=== PATIENT | female | born 1975 | race Caucasian/White ===

== ENCOUNTER → 2016-09-05 | Outpatient (CLI) | payer BC ==
[2016-09-05 08:24] LABS: ALT 34 U/L (9-52); AST 29 U/L (14-36); Alkaline Phosphatase 77 U/L (38-126); Anion Gap 11 mmol/L; Blood Urea Nitrogen 11 mg/dL (7-17); Calcium 8.8 mg/dL (8.4-10.2); Carbon Dioxide 26 mmol/L (22-30); Chloride 106 mmol/L (98-107); Cholesterol 155 mg/dL (<200); Glucose 148 mg/dL (74-99); HDL Cholesterol 50 mg/dL (40-60); Non-African American GFR(MDRD) >60 (>60 ml/min/1.73 sqM); Potassium 4.5 mmol/L (3.5-5.1); Sodium 143 mmol/L (137-145); Total Bilirubin 0.6 mg/dL (0.2-1.3); Total Protein 6.7 g/dL (6.3-8.2); Triglycerides 106 mg/dL (<150)
== END | disposition home or self-care (01) ==
LOC: LABWHC1 07:22
PROVIDERS: ATTEND Internal Medicine Endocrinology, Diabetes & Metabolism
DX: E11.65 Type 2 diabetes mellitus with hyperglycemia (principal)
CPT/HCPCS: 36415; 80053; 80061

== ENCOUNTER → 2016-12-24 | Outpatient (CLI) | payer BC ==
[2016-12-24 08:54] LABS: Basophils % (A) 1 %; CH 31.9; CHCM 33.5; Eosinophils # (A) 0.2 k/uL (0-0.7); Eosinophils % (A) 4 %; HCT 42.1 % (34.0-46.0); HDW 2.83; HGB 13.7 gm/dL (11.4-16.0); Luc # (Auto) 0.11; Luc % (Auto) 2; Lymphocytes # (A) 1.5 k/uL (1.0-4.8); Lymphocytes % (A) 32 %; MCH 31.1 pg (25.0-35.0); MCHC 32.5 g/dL (31.0-37.0); MCV 95.9 fL (80.0-100.0); Mean Platelet Volume 6.9; Monocytes # (A) 0.3 k/uL (0-1.0); Monocytes % (A) 6 %; Neutrophils # (A) 2.6 k/uL (1.3-7.7); Neutrophils % (A) 56 %; RBC 4.39 m/uL (3.80-5.40); RDW 13.1 % (11.5-15.5); WBC 4.6 k/uL (3.8-10.6); WBC (Perox) 4.79
[2016-12-24 09:02] LABS: ALT 35 U/L (9-52); AST 26 U/L (14-36); Alkaline Phosphatase 73 U/L (38-126); Anion Gap 8 mmol/L; Blood Urea Nitrogen 12 mg/dL (7-17); Carbon Dioxide 27 mmol/L (22-30); Chloride 105 mmol/L (98-107); Cholesterol 163 mg/dL (<200); Glucose 162 mg/dL (74-99); HDL Cholesterol 50 mg/dL (40-60); Non-African American GFR(MDRD) >60 (>60 ml/min/1.73 sqM); Potassium 5.1 mmol/L (3.5-5.1); Sodium 140 mmol/L (137-145); Total Bilirubin 0.6 mg/dL (0.2-1.3); Total Protein 7.2 g/dL (6.3-8.2); Triglycerides 117 mg/dL (<150)
== END | disposition home or self-care (01) ==
LOC: LABWHC1 07:41
PROVIDERS: ATTEND Internal Medicine
DX: E78.5 Hyperlipidemia, unspecified (principal); E11.9 Type 2 diabetes mellitus without complications; K21.9 Gastro-esophageal reflux disease without esophagitis; J45.20 Mild intermittent asthma, uncomplicated
CPT/HCPCS: 36415; 80053; 80061; 83036; 84439; 84443; 85025

== ENCOUNTER → 2017-01-22 | Outpatient (CLI) | payer BC ==
--- NOTE | 2017-01-22 08:01 | US ---
EXAMINATION TYPE: US abdomen complete DATE OF EXAM: 01/22/2017 COMPARISON: Previous study dated 02/09/2014. CLINICAL HISTORY 10.9 ABDOMINAL PAIN. C/O severe RUQ "stabbing" pain occurring intermittently; gallbl adder removed 2012; on meds for HTN,etc; large body habitus EXAM MEASUREMENTS: Liver Length: 14.4 cm Gallbladder Wall: surgically removed CBD: 0.5 cm Spleen: 10.9 cm Right Kidney: 9.2 x 6.3 x 4.4 cm Left Kidney: 9.9 x 5.7 x 5.2 cm Exam is technically limited by body habitus. Pancreas: Tail obscured by overlying bowel gas Liver: attenuated posteriorly; vessels limitedly seen Gallbladder: surgically absent Evidence for sonographic Ford's sign: not at time of US CBD: wnl Spleen: wnl Right Kidney: wnl Left Kidney: wnl Upper IVC: wnl Abd Aorta: wnl Bowel is noted at patient's area of pain at RUQ. The pancreas is poorly visualized. The liver is normal in size without evidence of biliary dilatation. It is slightly echogenic and perh aps fatty infiltrated. The gallbladder is been removed. Distal common hepatic duct measures 5 mm. Both kidneys are normal. Visualized portions of aorta and IVC are normal. IMPRESSION: 1. STATUS POST CHOLECYSTECTOMY. 2. I CANNOT EXCLUDE FATTY INFILTRATION OF THE LIVER.
== END | disposition home or self-care (01) ==
LOC: RADUSWWP 06:55
PROVIDERS: ATTEND Surgery
DX: R10.9 Unspecified abdominal pain (principal); Z90.49 Acquired absence of other specified parts of digestive tract
CPT/HCPCS: 76700

== ENCOUNTER → 2018-04-08 | Outpatient (CLI) | payer BC ==
[2018-04-08 07:15] LABS: ALT 47 U/L (9-52); AST 50 U/L (14-36); Albumin 3.6 g/dL (3.5-5.0); Alkaline Phosphatase 82 U/L (38-126); Anion Gap 7 mmol/L; Blood Urea Nitrogen 13 mg/dL (7-17); Calcium 8.4 mg/dL (8.4-10.2); Carbon Dioxide 27 mmol/L (22-30); Chloride 106 mmol/L (98-107); Cholesterol 140 mg/dL (<200); Glucose 107 mg/dL (74-99); HDL Cholesterol 48 mg/dL (40-60); LDL Cholesterol,Calculated 77 mg/dL (0-99); Potassium 4.2 mmol/L (3.5-5.1); Sodium 140 mmol/L (137-145); Total Bilirubin 0.6 mg/dL (0.2-1.3); Total Protein 6.5 g/dL (6.3-8.2); Triglycerides 76 mg/dL (<150)
[2018-04-08 13:18] LABS: Hemoglobin A1C 6.5 % (4.0-6.0)
== END | disposition home or self-care (01) ==
LOC: LABWHC1 06:35
PROVIDERS: ATTEND Internal Medicine
DX: E78.5 Hyperlipidemia, unspecified (principal); I10 Essential (primary) hypertension; E11.9 Type 2 diabetes mellitus without complications; E03.9 Hypothyroidism, unspecified
CPT/HCPCS: 36415; 80053; 80061; 82043; 82570; 83036; 84439; 84443

== ENCOUNTER 2018-10-04 12:32 | Emergency (ER) | payer BC ==
[2018-10-04 13:08] VITALS: RESP 18
[2018-10-04] MEDS ORDERED: SODIUM CHLORIDE 0.9% 1,000 ML IV STA (13:46)
--- NOTE | 2018-10-04 13:59 | ED ---
General Adult HPI - General Chief complaint: Recheck/Abnormal Lab/Rx Stated complaint: High BP Time Seen by Provider: 10/04/18 13:05 Source: patient, RN notes reviewed Mode of arrival: ambulatory Limitations: no limitations - History of Present Illness Initial comments: This is a 43-year-old female presents emergency department stating that her heart rate has been getting up to 130 beats a minute while she's at work. Patient states she's not upset and denies any drug use. Patient states she does not have any chest pain she does not feel any palpitations but she notices that her heart rate is at fast because of the watch is wearing. Patient denies any thyroid issues. Patient denies any headache patient denies numbness weakness. Patient denies any recent fever chills or cough. Patient denies any abdominal pain patient denies nausea vomiting diarrhea. Patient denies any leg swelling or calf tenderness. Patient denies any long trips or travel. Patient states this is been ongoing for a few days but she also has noted her blood pressures been up for the last week and a half or so. She does states she has some slight shortness of breath. - Related Data Home Medications Medication Instructions Recorded Confirmed Etodolac [Lodine] 400 mg PO BID 01/29/15 10/04/18 Gabapentin [Neurontin] 300 mg PO BID 01/29/15 10/04/18 Losartan [Cozaar] 25 mg PO DAILY 01/29/15 10/04/18 Pantoprazole Sodium 40 mg PO DAILY 01/29/15 10/04/18 Cyclobenzaprine [Flexeril] 10 mg PO HS PRN 10/04/18 10/04/18 Pioglitazone [Actos] 15 mg PO DAILY 10/04/18 10/04/18 glipiZIDE [Glucotrol] 10 mg PO AC-BID 10/04/18 10/04/18 Allergies Allergy/AdvReac Type Severity Reaction Status Date / Time metformin Allergy Unknown Verified 10/04/18 13:52 moxifloxacin HCl Allergy Rash/Hives Verified 10/04/18 13:52 [From Avelox] Review of Systems ROS Statement: Those systems with pertinent positive or pertinent negative responses have been documented in the HPI. ROS Other: All systems not noted in ROS Statement are negative. Past Medical History Past Medical History: Diabetes Mellitus, Hypertension History of Any Multi-Drug Resistant Organisms: None Reported Past Surgical History: Cholecystectomy Additional Past Surgical History / Comment(s): bladder suspension, carpal tunnel Past Psychological History: No Psychological Hx Reported Smoking Status: Never smoker Past Alcohol Use History: None Reported Past Drug Use History: None Reported General Exam - General Exam Comments Initial Comments: GENERAL: Patient is well-developed and well-nourished. Patient is nontoxic and well- hydrated and is in no acute distress. ENT: Neck is soft and supple. No significant lymphadenopathy is noted. Oropharynx is clear. Moist mucous membranes. Neck has full range of motion without eliciting any pain. EYES: The sclera were anicteric and conjunctiva were pink and moist. Extraocular movements were intact and pupils were equal round and reactive to light. Eyelids were unremarkable. PULMONARY: Unlabored respirations. Good breath sounds bilaterally. No audible rales rhonchi or wheezing was noted. CARDIOVASCULAR: There is a regular rate and rhythm without any murmurs gallops or rubs. ABDOMEN: Soft and nontender with normal bowel sounds. No palpable organomegaly was noted. There is no palpable pulsatile mass. SKIN: Skin is clear with no lesions or rashes and otherwise unremarkable. NEUROLOGIC: Patient is alert and oriented x3. Cranial nerves II through XII are grossly intact. Motor and sensory are also intact. Normal speech, volume and content. Symmetrical smile. MUSCULOSKELETAL: Normal extremities with adequate strength and full range of motion. No lower extremity swelling or edema. No calf tenderness. LYMPHATICS: No significant lymphadenopathy is noted PSYCHIATRIC: Normal psychiatric evaluation. Normal interpersonal interactions appears functionally intact in deals appropriately with others. No signs of depression. No signs of anxiety. Limitations: no limitations Course Vital Signs 10/04/18 10/04/18 10/04/18 13:05 13:53 15:00 Temperature 98.3 F Pulse Rate 107 H 111 H 102 H Respiratory 18 18 18 Rate Blood Pressure 148/84 139/82 O2 Sat by Pulse 100 100 99 Oximetry 10/04/18 15:45 Temperature Pulse Rate 104 H Respiratory 18 Rate Blood Pressure 143/74 O2 Sat by Pulse 99 Oximetry Medical Decision Making - Medical Decision Making EKG shows sinus tachycardia at 102 bpm MO interval is on a 44 QRS 78 QT interval 346 QTC is 450 per patient's EKG shows no ST segment elevation or depression or T wave abnormalities are noted. - Lab Data Result diagrams: 10/04/18 14:00 10/04/18 14:00 Lab Results 10/04/18 10/04/18 10/04/18 Range/Units 14:00 14:00 14:00 WBC 5.7 (3.8-10.6) k/uL RBC 4.22 (3.80-5.40) m/uL Hgb 13.1 (11.4-16.0) gm/dL Hct 38.9 (34.0-46.0) % MCV 92.0 (80.0-100.0) fL MCH 30.9 (25.0-35.0) pg MCHC 33.6 (31.0-37.0) g/dL RDW 13.2 (11.5-15.5) % Plt Count 200 (150-450) k/uL Neutrophils % 65 % Lymphocytes % 25 % Monocytes % 4 % Eosinophils % 4 % Basophils % 1 % Neutrophils # 3.7 (1.3-7.7) k/uL Lymphocytes # 1.5 (1.0-4.8) k/uL Monocytes # 0.2 (0-1.0) k/uL Eosinophils # 0.2 (0-0.7) k/uL Basophils # 0.0 (0-0.2) k/uL PT 11.2 (9.0-12.0) sec INR 1.1 (<1.2) APTT 25.1 (22.0-30.0) sec D-Dimer 0.45 (<0.60) mg/L FEU Sodium (137-145) mmol/L Potassium (3.5-5.1) mmol/L Chloride (98-107) mmol/L Carbon Dioxide (22-30) mmol/L Anion Gap mmol/L BUN (7-17) mg/dL Creatinine (0.52-1.04) mg/dL Est GFR (CKD-EPI)AfAm (>60 ml/min/1.73 sqM) Est GFR (CKD-EPI)NonAf (>60 ml/min/1.73 sqM) Glucose (74-99) mg/dL Calcium (8.4-10.2) mg/dL Magnesium (1.6-2.3) mg/dL Total Bilirubin (0.2-1.3) mg/dL AST (14-36) U/L ALT (9-52) U/L Alkaline Phosphatase (38-126) U/L Total Creatine Kinase 136 H (30-135) U/L CK-MB (CK-2) 1.8 (0.0-2.4) ng/mL CK-MB (CK-2) Rel Index 1.3 Troponin I <0.012 (0.000-0.034) ng/mL Total Protein (6.3-8.2) g/dL Albumin (3.5-5.0) g/dL TSH (0.465-4.680) mIU/L Free T4 (0.78-2.19) ng/dL Urine Opiates Screen (NotDetected) Ur Oxycodone Screen (NotDetected) Urine Methadone Screen (NotDetected) Ur Propoxyphene Screen (NotDetected) Ur Barbiturates Screen (NotDetected) U Tricyclic Antidepress (NotDetected) Ur Phencyclidine Scrn (NotDetected) Ur Amphetamines Screen (NotDetected) U Methamphetamines Scrn (NotDetected) U Benzodiazepines Scrn (NotDetected) Urine Cocaine Screen (NotDetected) U Marijuana (THC) Screen (NotDetected) 10/04/18 10/04/18 Range/Units 14:00 14:00 WBC (3.8-10.6) k/uL RBC (3.80-5.40) m/uL Hgb (11.4-16.0) gm/dL Hct (34.0-46.0) % MCV (80.0-100.0) fL MCH (25.0-35.0) pg MCHC (31.0-37.0) g/dL RDW (11.5-15.5) % Plt Count (150-450) k/uL Neutrophils % % Lymphocytes % % Monocytes % % Eosinophils % % Basophils % % Neutrophils # (1.3-7.7) k/uL Lymphocytes # (1.0-4.8) k/uL Monocytes # (0-1.0) k/uL Eosinophils # (0-0.7) k/uL Basophils # (0-0.2) k/uL PT (9.0-12.0) sec INR (<1.2) APTT (22.0-30.0) sec D-Dimer (<0.60) mg/L FEU Sodium 141 (137-145) mmol/L Potassium 4.0 (3.5-5.1) mmol/L Chloride 109 H (98-107) mmol/L Carbon Dioxide 23 (22-30) mmol/L Anion Gap 9 mmol/L BUN 15 (7-17) mg/dL Creatinine 0.63 (0.52-1.04) mg/dL Est GFR (CKD-EPI)AfAm >90 (>60 ml/min/1.73 sqM) Est GFR (CKD-EPI)NonAf >90 (>60 ml/min/1.73 sqM) Glucose 141 H (74-99) mg/dL Calcium 8.9 (8.4-10.2) mg/dL Magnesium 1.8 (1.6-2.3) mg/dL Total Bilirubin 0.4 (0.2-1.3) mg/dL AST 25 (14-36) U/L ALT 28 (9-52) U/L Alkaline Phosphatase 82 (38-126) U/L Total Creatine Kinase (30-135) U/L CK-MB (CK-2) (0.0-2.4) ng/mL CK-MB (CK-2) Rel Index Troponin I (0.000-0.034) ng/mL Total Protein 6.9 (6.3-8.2) g/dL Albumin 3.8 (3.5-5.0) g/dL TSH 0.399 L (0.465-4.680) mIU/L Free T4 0.91 (0.78-2.19) ng/dL Urine Opiates Screen Not Detected (NotDetected) Ur Oxycodone Screen Not Detected (NotDetected) Urine Methadone Screen Not Detected (NotDetected) Ur Propoxyphene Screen Not Detected (NotDetected) Ur Barbiturates Screen Not Detected (NotDetected) U Tricyclic Antidepress Not Detected (NotDetected) Ur Phencyclidine Scrn Not Detected (NotDetected) Ur Amphetamines Screen Not Detected (NotDetected) U Methamphetamines Scrn Not Detected (NotDetected) U Benzodiazepines Scrn Not Detected (NotDetected) Urine Cocaine Screen Not Detected (NotDetected) U Marijuana (THC) Screen Not Detected (NotDetected) Disposition Clinical Impression: Sinus tachycardia Disposition: HOME SELF-CARE Condition: Good Instructions (If sedation given, give patient instructions): Atrial Tachycardia (ED) Is patient prescribed a controlled substance at d/c from ED?: No Referrals: Gonzalez Kessler MD [Primary Care Provider] - 1-2 days Time of Disposition: 16:11
[2018-10-04 14:22] LABS: Basophils % (A) 1 %; Eosinophils # (A) 0.2 k/uL (0-0.7); Eosinophils % (A) 4 %; HCT 38.9 % (34.0-46.0); HGB 13.1 gm/dL (11.4-16.0); Lymphocytes # (A) 1.5 k/uL (1.0-4.8); Lymphocytes % (A) 25 %; MCH 30.9 pg (25.0-35.0); MCHC 33.6 g/dL (31.0-37.0); Mean Platelet Volume 6.8; Monocytes # (A) 0.2 k/uL (0-1.0); Monocytes % (A) 4 %; Neutrophils # (A) 3.7 k/uL (1.3-7.7); Neutrophils % (A) 65 %; Platelet Count 200 k/uL (150-450); RBC 4.22 m/uL (3.80-5.40); RDW 13.2 % (11.5-15.5); WBC 5.7 k/uL (3.8-10.6)
--- NOTE | 2018-10-04 14:35 | XR ---
EXAMINATION TYPE: XR chest 2V DATE OF EXAM: 10/04/2018 COMPARISON: NONE HISTORY: Arrhythmia. History of hypertension. TECHNIQUE: Frontal and lateral views of the chest are obtained. FINDINGS: There is no focal air space opacity, pleural effusion, or pneumothorax seen. The cardiac silhouette size is upper limits of normal. The osseous structures are intact. Cholecystectomy clips are noted. IMPRESSION: No acute cardiopulmonary process.
[2018-10-04 14:37] LABS: Amphetamine Screen,Urine Not Detected (NotDetected); Barbiturate Screen,Urine Not Detected (NotDetected); Benzodiazepines Screen,Urine Not Detected (NotDetected); Cocaine Screen,Urine Not Detected (NotDetected); Methadone Screen, Urine Not Detected (NotDetected); Opiate Screen,Urine Not Detected (NotDetected); Oxycodone Screen, Urine Not Detected (NotDetected); Phencyclidine Screen,Urine Not Detected (NotDetected); Tricyclic Antidepressant,Urine Not Detected (NotDetected); Urn Cannabinoid Scrn Not Detected (NotDetected)
[2018-10-04 14:39] LABS: D-Dimer 0.45 mg/L FEU (<0.60); INR 1.1 (<1.2); Partial Thromboplastin Time 25.1 sec (22.0-30.0); Prothrombin Time 11.2 sec (9.0-12.0)
[2018-10-04 14:56] LABS: ALT 28 U/L (9-52); AST 25 U/L (14-36); Albumin 3.8 g/dL (3.5-5.0); Alkaline Phosphatase 82 U/L (38-126); Anion Gap 9 mmol/L; Blood Urea Nitrogen 15 mg/dL (7-17); Calcium 8.9 mg/dL (8.4-10.2); Carbon Dioxide 23 mmol/L (22-30); Chloride 109 mmol/L (98-107); Creatine Kinase 136 U/L (30-135); Glucose 141 mg/dL (74-99); Magnesium 1.8 mg/dL (1.6-2.3); Sodium 141 mmol/L (137-145); Total Bilirubin 0.4 mg/dL (0.2-1.3); Total Protein 6.9 g/dL (6.3-8.2)
[2018-10-04 15:08] LABS: Creatine Kinase MB 1.8 ng/mL (0.0-2.4); Troponin I <0.012 ng/mL (0.000-0.034)
[2018-10-04 15:12] LABS: T4, Free (Free Thyroxine) 0.91 ng/dL (0.78-2.19)
[2018-10-04 16:25] VITALS: BP 139/47; PULSE 93; TEMP 99.1
== END 2018-10-04 16:25 | disposition home or self-care (01) ==
LOC: EC 12:32
DX: R00.0 Tachycardia, unspecified (principal); R06.02 Shortness of breath; E11.9 Type 2 diabetes mellitus without complications; I10 Essential (primary) hypertension; Z79.899 Other long term (current) drug therapy; Z79.84 Long term (current) use of oral hypoglycemic drugs; Z88.8 Allergy status to other drugs, medicaments and biological substances; Z88.1 Allergy status to other antibiotic agents
CPT/HCPCS: 36415; 71046; 80053; 80306; 82550; 82553; 83735; 84439; 84443; 84484; 85025; 85379; 85610; 85730; 93005; 96360; 96361; 99283

== ENCOUNTER → 2018-12-30 | Outpatient (CLI) | payer BC ==
[2018-12-30 11:25] LABS: LDL Cholesterol,Calculated 119.8 mg/dL (0.0-131.0); VLDL Calculation 18.2 mg/dL (5.00-40.00)
[2018-12-30 12:11] LABS: Hemoglobin A1C 6.4 % (4.0-6.0)
== END | disposition home or self-care (01) ==
LOC: LABWHC1 07:32
PROVIDERS: ATTEND Internal Medicine
DX: Z00.00 Encounter for general adult medical examination without abnormal findings (principal)
CPT/HCPCS: 36415; 80061; 83036

== ENCOUNTER → 2019-01-06 | Outpatient (CLI) | payer BC ==
[2019-01-06 11:01] LABS: Basophils % (A) 1 %; Eosinophils # (A) 0.1 k/uL (0-0.7); Eosinophils % (A) 2 %; HGB 13.6 gm/dL (11.4-16.0); Lymphocytes # (A) 1.3 k/uL (1.0-4.8); Lymphocytes % (A) 23 %; MCH 30.7 pg (25.0-35.0); MCHC 33.2 g/dL (31.0-37.0); MCV 92.4 fL (80.0-100.0); Mean Platelet Volume 6.6; Monocytes # (A) 0.2 k/uL (0-1.0); Monocytes % (A) 4 %; Neutrophils # (A) 3.7 k/uL (1.3-7.7); Neutrophils % (A) 68 %; Platelet Count 268 k/uL (150-450); RBC 4.43 m/uL (3.80-5.40); RDW 13.4 % (11.5-15.5); WBC 5.4 k/uL (3.8-10.6)
[2019-01-06 11:18] LABS: Appearance,Urine Clear (Clear); Bacteria,Urine Rare /hpf; Bilirubin,Urine 4+ (Negative); Blood,Urine Small (Negative); Color,Urine Yellow; Glucose,Urine (UA) Negative (Negative); Ketones,Urine Negative (Negative); Leukocyte Esterase,Urine Trace (Negative); Mucus,Urine Occasional /hpf; Nitrite,Urine Negative (Negative); PH, Urine 5.5 (5.0-8.0); Protein,Urine Negative (Negative); RBC,Urine 3 /hpf (0-5); Specific Gravity,Urine 1.025 (1.001-1.035); Squamous Epithelial Cell,Urine 1 /hpf (0-4); Urobilinogen,Urine <2.0 mg/dL (<2.0); WBC,Urine 3 /hpf (0-5)
[2019-01-06 16:35] LABS: Albumin 4.3 g/dL (3.80-4.90); Albumin/Globulin Ratio 1.72 (1.60-3.17); Anion Gap 8.5 mmol/L (4.00-12.00); Calcium 9.2 mg/dL (8.7-10.3); Carbon Dioxide 26.5 mmol/L (21.6-31.8); Globulin 2.5 g/dL (1.6-3.3); Magnesium 1.8 mg/dL (1.5-2.4); Potassium 3.8 mmol/L (3.5-5.5); Total Bilirubin 0.4 mg/dL (0.3-1.2); Total Protein 6.8 g/dL (6.2-8.2)
== END | disposition home or self-care (01) ==
LOC: LABWHC1 10:26
PROVIDERS: ATTEND Internal Medicine
DX: E78.2 Mixed hyperlipidemia (principal); E11.9 Type 2 diabetes mellitus without complications; I10 Essential (primary) hypertension
CPT/HCPCS: 36415; 80053; 81001; 82043; 82550; 82570; 83735; 84439; 84443; 85025

== ENCOUNTER 2019-01-09 19:06 | Inpatient (IN) | payer BC ==
[2019-01-09] MEDS ORDERED: ASPIRIN 81 MG PO STA (20:15)
--- NOTE | 2019-01-09 20:15 | ED ---
General Adult HPI - General Chief complaint: Neuro Symptoms/Deficit Stated complaint: facial numbness/trouble swallowing Time Seen by Provider: 01/09/19 19:44 Source: patient Mode of arrival: ambulatory Limitations: no limitations - History of Present Illness Initial comments: Dictation was produced using [employer] dictation software. please excuse any grammatical, word or spelling errors. Chief Complaint: 43-year-old female presents with instruction from primary care physician for possible stroke History of Present Illness: Patient is a 43-year-old female with past nuchal history of diabetes and hypertension. On Wednesday she began having left facial weakness and paresthesias. Patient was evaluated by primary care physician told to come to the emergency department for possible stroke. Patient's PCP is Dr. Yun. Report received from them he was concerned that patient is having strokelike symptoms in the office and wanted her to be evaluated neurologically. Patient states she's been having numbness given in her mouth which is pressure. She does also report weakness in her eye and eyebrow. The ROS documented in this emergency department record has been reviewed and confirmed by me. Those systems with pertinent positive or negative responses have been documented in the HPI. All other systems are other negative and/or noncontributory. PHYSICAL EXAM: General Impression: Alert and oriented x3, not in acute distress HEENT: Normocephalic atraumatic, extra-ocular movements intact, pupils equal and reactive to light bilaterally, mucous membranes moist. Cardiovascular: Heart regular rate and rhythm, S1&S2 audible, no murmurs, rubs or gallops Chest: Lungs clear to auscultation bilaterally, no rhonchi, no wheeze, no rales Abdomen: Bowel sounds present, abdomen soft, non-tender, non-distended, no o rganomegaly Musculoskeletal: Pulses present and equal in all extremities, no peripheral edema Motor: no focal deficits noted Neurological: Weakness of the eye and eyebrow with eyebrow lift. Left facial droop. No asymmetrical neurologic deficit to the extremities. Non-ataxic Skin: Intact with no visualized rashes Psych: Normal affect and mood ED course: 43-year-old female clinical presentation of Walker palsy versus CVA. Patient's outside of stroke or neurovascular intervention a window. On arrival are within acceptable limits. Patient does have stroke risk factors and family history of stroke. Primary care physician requested that patient be admitted for neurologic evaluation and stroke workup. Patient woke up with some dictation in my opinion is more consistent with Walker palsy. We will simultaneously start Walker palsy medications. Abdomen evaluation obtained. CBC, coag panel, metabolic panel is unremarkable. Urine disease negative. CT of the brain and chest x-ray are not acute. Patient treated with aspirin per patient also given prednisone she is given artificial tears and eye shield and antivirals. Be admitted with neurology on consultation. EKG interpretation: Ventricular rate 92, normal sinus rhythm,. Interval 134, care 70, QTC 452. No SC prolongation, no QTC prolongation, no ST or T-wave changes noted. Overall, this EKG is unremarkable - Related Data Home Medications Medication Instructions Recorded Confirmed Etodolac [Lodine] 400 mg PO BID 01/29/15 01/09/19 Gabapentin [Neurontin] 300 mg PO BID 01/29/15 01/09/19 Losartan [Cozaar] 25 mg PO DAILY 01/29/15 01/09/19 Pantoprazole Sodium 40 mg PO DAILY 01/29/15 01/09/19 Cyclobenzaprine [Flexeril] 10 mg PO HS PRN 10/04/18 01/09/19 Pioglitazone [Actos] 15 mg PO DAILY 10/04/18 01/09/19 glipiZIDE [Glucotrol] 10 mg PO AC-BID 10/04/18 01/09/19 Biotin 5 mg PO DAILY 01/09/19 01/09/19 Allergies Allergy/AdvReac Type Severity Reaction Status Date / Time metformin Allergy Unknown Verified 01/09/19 19:32 moxifloxacin HCl Allergy Rash/Hives Verified 01/09/19 19:32 [From Avelox] Review of Systems ROS Statement: Those systems with pertinent positive or pertinent negative responses have been documented in the HPI. ROS Other: All systems not noted in ROS Statement are negative. Past Medical History Past Medical History: Diabetes Mellitus, Hypertension History of Any Multi-Drug Resistant Organisms: None Reported Past Surgical History: Cholecystectomy Additional Past Surgical History / Comment(s): bladder suspension, carpal tunnel Past Psychological History: No Psychological Hx Reported Smoking Status: Never smoker Past Alcohol Use History: None Reported Past Drug Use History: None Reported General Exam Limitations: no limitations Course Vital Signs 01/09/19 01/09/19 01/09/19 19:29 20:39 21:07 Temperature 98.4 F 98.2 F Pulse Rate 101 H 99 89 Respiratory 18 18 18 Rate Blood Pressure 113/74 168/83 135/71 O2 Sat by Pulse 100 99 99 Oximetry 01/09/19 22:29 Temperature Pulse Rate 90 Respiratory 18 Rate Blood Pressure O2 Sat by Pulse Oximetry Medical Decision Making - Lab Data Result diagrams: 01/09/19 20:16 01/09/19 20:16 Lab Results 01/09/19 01/09/19 01/09/19 Range/Units 20:16 20:16 20:16 WBC 6.6 (3.8-10.6) k/uL RBC 4.48 (3.80-5.40) m/uL Hgb 13.5 (11.4-16.0) gm/dL Hct 40.8 (34.0-46.0) % MCV 91.1 (80.0-100.0) fL MCH 30.0 (25.0-35.0) pg MCHC 33.0 (31.0-37.0) g/dL RDW 13.3 (11.5-15.5) % Plt Count 237 (150-450) k/uL Neutrophils % 68 % Lymphocytes % 22 % Monocytes % 5 % Eosinophils % 3 % Basophils % 1 % Neutrophils # 4.5 (1.3-7.7) k/uL Lymphocytes # 1.5 (1.0-4.8) k/uL Monocytes # 0.3 (0-1.0) k/uL Eosinophils # 0.2 (0-0.7) k/uL Basophils # 0.0 (0-0.2) k/uL PT 11.7 (9.0-12.0) sec INR 1.1 (<1.2) APTT 24.7 (22.0-30.0) sec Sodium 140 (137-145) mmol/L Potassium 3.8 (3.5-5.1) mmol/L Chloride 106 (98-107) mmol/L Carbon Dioxide 27 (22-30) mmol/L Anion Gap 7 mmol/L BUN 10 (7-17) mg/dL Creatinine 0.65 (0.52-1.04) mg/dL Est GFR (CKD-EPI)AfAm >90 (>60 ml/min/1.73 sqM) Est GFR (CKD-EPI)NonAf >90 (>60 ml/min/1.73 sqM) Glucose 131 H (74-99) mg/dL Calcium 8.9 (8.4-10.2) mg/dL Total Bilirubin 0.4 (0.2-1.3) mg/dL AST 27 (14-36) U/L ALT 26 (9-52) U/L Alkaline Phosphatase 74 (38-126) U/L Troponin I (0.000-0.034) ng/mL Total Protein 6.9 (6.3-8.2) g/dL Albumin 3.9 (3.5-5.0) g/dL Urine HCG, Qual (Not Detectd) 01/09/19 01/09/19 Range/Units 20:16 22:25 WBC (3.8-10.6) k/uL RBC (3.80-5.40) m/uL Hgb (11.4-16.0) gm/dL Hct (34.0-46.0) % MCV (80.0-100.0) fL MCH (25.0-35.0) pg MCHC (31.0-37.0) g/dL RDW (11.5-15.5) % Plt Count (150-450) k/uL Neutrophils % % Lymphocytes % % Monocytes % % Eosinophils % % Basophils % % Neutrophils # (1.3-7.7) k/uL Lymphocytes # (1.0-4.8) k/uL Monocytes # (0-1.0) k/uL Eosinophils # (0-0.7) k/uL Basophils # (0-0.2) k/uL PT (9.0-12.0) sec INR (<1.2) APTT (22.0-30.0) sec Sodium (137-145) mmol/L Potassium (3.5-5.1) mmol/L Chloride (98-107) mmol/L Carbon Dioxide (22-30) mmol/L Anion Gap mmol/L BUN (7-17) mg/dL Creatinine (0.52-1.04) mg/dL Est GFR (CKD-EPI)AfAm (>60 ml/min/1.73 sqM) Est GFR (CKD-EPI)NonAf (>60 ml/min/1.73 sqM) Glucose (74-99) mg/dL Calcium (8.4-10.2) mg/dL Total Bilirubin (0.2-1.3) mg/dL AST (14-36) U/L ALT (9-52) U/L Alkaline Phosphatase (38-126) U/L Troponin I <0.012 (0.000-0.034) ng/mL Total Protein (6.3-8.2) g/dL Albumin (3.5-5.0) g/dL Urine HCG, Qual Not Detected (Not Detectd) Disposition Clinical Impression: Facial weakness Disposition: ADMITTED IP TO THIS [facility] Condition: Fair Referrals: Abril Yun MD [Primary Care Provider] - 1-2 days Decision Time: 22:49
[2019-01-09 20:27] LABS: Basophils % (A) 1 %; Eosinophils # (A) 0.2 k/uL (0-0.7); Eosinophils % (A) 3 %; HCT 40.8 % (34.0-46.0); HGB 13.5 gm/dL (11.4-16.0); Lymphocytes # (A) 1.5 k/uL (1.0-4.8); Lymphocytes % (A) 22 %; MCV 91.1 fL (80.0-100.0); Mean Platelet Volume 6.6; Monocytes # (A) 0.3 k/uL (0-1.0); Monocytes % (A) 5 %; Neutrophils # (A) 4.5 k/uL (1.3-7.7); Neutrophils % (A) 68 %; Platelet Count 237 k/uL (150-450); RBC 4.48 m/uL (3.80-5.40); RDW 13.3 % (11.5-15.5); WBC 6.6 k/uL (3.8-10.6)
[2019-01-09 20:38] LABS: ALT 26 U/L (9-52); AST 27 U/L (14-36); Albumin 3.9 g/dL (3.5-5.0); Alkaline Phosphatase 74 U/L (38-126); Anion Gap 7 mmol/L; Blood Urea Nitrogen 10 mg/dL (7-17); Calcium 8.9 mg/dL (8.4-10.2); Carbon Dioxide 27 mmol/L (22-30); Chloride 106 mmol/L (98-107); Glucose 131 mg/dL (74-99); Potassium 3.8 mmol/L (3.5-5.1); Sodium 140 mmol/L (137-145); Total Bilirubin 0.4 mg/dL (0.2-1.3); Total Protein 6.9 g/dL (6.3-8.2)
[2019-01-09 20:45] LABS: INR 1.1 (<1.2); Partial Thromboplastin Time 24.7 sec (22.0-30.0); Prothrombin Time 11.7 sec (9.0-12.0)
--- NOTE | 2019-01-09 20:45 | CT ---
EXAMINATION TYPE: CT brain wo con DATE OF EXAM: 01/09/2019 COMPARISON: None HISTORY: Left side facial numbness CT DLP: 1064.4 mGycm. Automated Exposure Control for Dose Reduction was Utilized. TECHNIQUE: CT scan of the head is performed without contrast. FINDINGS: Ventricles and sulci appear normal. There is no mass effect nor midline shift. There is no sign of intracranial hemorrhage. Calvarium is intact. IMPRESSION: Negative unenhanced head CT scan.
--- NOTE | 2019-01-09 20:46 | XR ---
EXAMINATION TYPE: XR chest 2V DATE OF EXAM: 01/09/2019 COMPARISON: 10/04/2018 HISTORY: Altered mental status TECHNIQUE: Frontal and lateral views of the chest are obtained. FINDINGS: Heart and mediastinum are normal. Lungs are clear. Diaphragm is normal. Bony thorax is int act. IMPRESSION: Normal chest. No change.
[2019-01-09] MEDS: ARTIFICIAL TEARS-HYPROMELLOSE DROPS 15 ML BTL LEFT EYE PRN (21:04)
[2019-01-09] MEDS ORDERED: predniSONE 20 MG TAB PO STA (22:47)
[2019-01-09] MEDS ORDERED: NALOXONE 0.4 MG/ML 1 ML VIAL IV PRN (22:49)
[2019-01-09] MEDS ORDERED: valACYclovir 500 MG TAB PO SCH (23:00)
[2019-01-09] MEDS: SODIUM CHLORIDE 0.9% 1,000 ML IV SCH (23:55)
[2019-01-10] MEDS ORDERED: CYCLOBENZAPRINE 10 MG TAB PO PRN (01:00)
[2019-01-10 07:46] LABS: Glucose,Whole Blood 245 mg/dL (75-99)
[2019-01-10] MEDS: INSULIN ASPART (NovoLOG) 100 UNIT/ML VIAL SQ SCH ×4 (07:54→20:40)
[2019-01-10] MEDS: PANTOPRAZOLE 40 MG TABLET PO SCH (08:07)
[2019-01-10] MEDS: glipiZIDE 10 MG TAB PO SCH ×2 (08:22→17:49)
[2019-01-10] MEDS: LOSARTAN 25 MG TAB PO SCH ×2 (08:24→10:33)
[2019-01-10] MEDS: valACYclovir HCL 1,000 MG TABLET PO SCH (08:25)
[2019-01-10] MEDS: PIOGLITAZONE 15 MG TAB PO SCH (08:26)
[2019-01-10 08:50] LABS: Glucose,Whole Blood 258 mg/dL (75-99)
[2019-01-10] MEDS ORDERED: NON-FORMULARY DRUG (Biotin [Biotin] 5 MG) PO SCH (09:00)
[2019-01-10] MEDS ORDERED: INSULIN ASPART (NovoLOG) 100 UNIT/ML VIAL SQ ONE (10:18)
[2019-01-10 10:29] LABS: Glucose,Whole Blood 220 mg/dL (75-99)
[2019-01-10] MEDS: GABAPENTIN 300 MG CAP PO SCH ×2 (10:33→20:40)
[2019-01-10] MEDS ORDERED: ACETAMINOPHEN TAB 500 MG TAB PO PRN (11:22)
[2019-01-10 11:49] LABS: Glucose,Whole Blood 204 mg/dL (75-99)
[2019-01-10 13:50] LABS: Glucose,Whole Blood 147 mg/dL (75-99)
--- NOTE | 2019-01-10 14:08 | P.HPIM ---
History of Present Illness H&P Date: 01/10/19 Chief Complaint: CVA, left-sided weakness, Walker's palsy with facial droop, young de león 43-year-old female overweight with history of type 2 diabetes, hypertension, hyperlipidemia who was started on atorvastatin this past week as an outpatient because of significant hyperlipidemia she: Resume service on Wednesday complaining of weakness and droopy face on the left side she claimed side effect atorvastatin was told that time this is could be Walker's palsy but not to give it any chance to go to the emergency department, she waited until Wednesday and was seen by Dr. Yun in the office with a current finding was concern about CVA specially with the severe of her paralysis in the left facial area and slight weakness and numbness in the left arm a Chin ended up coming to the emergency department CT of the brain didn't show any abnormality patient was admitted after CAT scan of the brain on monitor and storage bin tender will be seen urology and be evaluated was started on high dose of Valtrex at the time no steroid was use. Review of Systems CONSTITUTIONAL: Well-developed no acute respiratory distress. EYES: Positive irritation and discomfort in left eye with troponin GI EARS, NOSE, MOUTH, THROAT, and FACE: No sore throat, lymphadenopathy, carotid bruits or deformity. RESPIRATORY: No SOB cough or wheezes. CARDIOVASCULAR: No CP, Palpitation, PND, Orthopnea, or angina. GASTROINTESTINAL: No Abd pain, Nausea or vomiting, no Diarrhea or constipation, No GI Bleed, no distention or masses. GENITOURINARY: Negative for Hematuria or UTI, no kidney stones. INTEGUMENT/BREAST: Negative for any muscular injury with mild osteoarthritis.. HEMATOLOGIC/LYMPHATIC: Negative for bleed or purpura. MUSCULOSKELTAL: Negative for Myalgia or arthralgia. NEURLOGICAL: Slight weakness in the left side with possible stroke BEHAVIORAL/PSYCH: Negative. ENDOCRINE: Negative. Past Medical History Past Medical History: Asthma, Diabetes Mellitus, GERD/Reflux, Hypertension Additional Past Medical History / Comment(s): NIDDM type II, RLS, seasonal asthma, bronchitis. History of Any Multi-Drug Resistant Organisms: None Reported Past Surgical History: Cholecystectomy Additional Past Surgical History / Comment(s): bladder suspension, R carpal tunnel release, EGD/colonoscopy Past Anesthesia/Blood Transfusion Reactions: Postoperative Nausea & Vomiting (PONV) Smoking Status: Never smoker - Past Family History Father Additional Family Medical History / Comment(s): Father had 3rd degree heart block and has a pacer. Mother Family Medical History: Blood Disorder Additional Family Medical History / Comment(s): Low platelets. Medications and Allergies Home Medications Medication Instructions Recorded Confirmed Type Etodolac [Lodine] 400 mg PO BID 01/29/15 01/09/19 History Gabapentin [Neurontin] 300 mg PO BID 01/29/15 01/09/19 History Losartan [Cozaar] 25 mg PO DAILY 01/29/15 01/09/19 History Pantoprazole Sodium 40 mg PO DAILY 01/29/15 01/09/19 History Cyclobenzaprine [Flexeril] 10 mg PO HS PRN 10/04/18 01/09/19 History Pioglitazone [Actos] 15 mg PO DAILY 10/04/18 01/09/19 History glipiZIDE [Glucotrol] 10 mg PO AC-BID 10/04/18 01/09/19 History Biotin 5 mg PO DAILY 01/09/19 01/09/19 History Allergies Allergy/AdvReac Type Severity Reaction Status Date / Time metformin Allergy Unknown Verified 01/09/19 19:32 moxifloxacin HCl Allergy Rash/Hives Verified 01/09/19 19:32 [From Avelox] Physical Exam Vitals: Vital Signs Temp Pulse Resp BP Pulse Ox 01/10/19 12:40 99.0 F 116 H 18 145/86 95 01/10/19 11:00 160/86 96 01/10/19 10:00 90 18 140/85 97 01/10/19 08:00 122/75 96 01/10/19 07:00 97 18 122/75 97 01/10/19 06:00 94 20 122/65 88 L 01/10/19 04:00 91 18 130/77 95 01/09/19 23:56 95 18 149/79 98 01/09/19 22:29 90 18 01/09/19 21:07 98.2 F 89 18 135/71 99 01/09/19 20:39 99 18 168/83 99 01/09/19 20:18 100 01/09/19 19:29 98.4 F 101 H 18 113/74 100 Intake and Output 01/09/19 01/10/19 01/10/19 22:59 06:59 14:59 Other: Weight 113.398 kg General Appearance: Alert, cooperative, no distress, appears stated age. Positive slight asymmetry of the facial area. Neck HEENT: Slight bit of problem with paralysis of the left side of the facial area with significant droopy face not been able to close her eye completely with more dryness on the high.. Lungs: Clear to auscultation without crackles or wheezes no rhonchi, no deformit y. Chest Wall: Chest wall normal expansion with deep inspiration no tenderness and no deformity was found on exam, no costochondral pain or discomfort. Heart: Regular rate and rhythm, S1, S2 normal, no murmur, rub or gallop. Back: Symmetric, no curvature, ROM normal, no CVA tenderness. Abdomen: Soft, non-tender, bowel sounds active all four quadrants, no masses, no organomegaly. Extremities: Extremities normal, atraumatic, no cyanosis or edema. Pulses: 2+ and symmetric. Skin: Skin color, texture, tugor normal, no rashes or lesions. Neurologic: Alert oriented x3 cranial nerves II through XII has slight effect x- ray nerve VII on the left side positive slight numbness in the left arm with no abnormal balance and gait. Results CBC & Chem 7: 01/09/19 20:16 01/09/19 20:16 Labs: Abnormal Lab Results - Last 24 Hours (Table) 01/09/19 01/10/19 01/10/19 Range/Units 20:16 07:45 08:46 Glucose 131 H (74-99) mg/dL POC Glucose (mg/dL) 245 H 258 H (75-99) mg/dL 01/10/19 01/10/19 01/10/19 Range/Units 10:28 11:21 13:46 Glucose (74-99) mg/dL POC Glucose (mg/dL) 220 H 204 H 147 H (75-99) mg/dL Thrombosis Risk Factor Assmnt - DVT/VTE Prophylaxis DVT/VTE Prophylaxis: Mechanical Prophylaxis ordered - Choose All That Apply Any of the Below Risk Factors Present?: Yes Each Factor Represents 1 point: Age 41-60 years, Obesity (BMI >25) Other Risk Factors: No Other congenital or acquired thrombophilia - If yes, enter type in comment: No Thrombosis Risk Factor Assessment Total Risk Factor Score: 2 Thrombosis Risk Factor Assessment Level: Low Risk Assessment and Plan Plan: 1 CVA/TIA: Patient be admitted to the hospital after CT was done patient will be seen neurology continue neuro exam every 4 hours, echocardiogram carotid ultrasound monitor and storage bin tender be done. Patient might benefit from going for an MRI of the brain. 2 severe Walker's Palsy: Patient was started on Valtrex no steroid use at this point awaiting for neurology if need we'll consult ophthalmology as well and if benefit from high-dose of Medrol might be beneficial. 3 type 2 diabetes: Has been on through the [employer], Actos and glipizide. 4 hyperlipidemia: Was started on atorvastatin and quit medication herself. 5 hypertension: Remain on losartan 25 mg a day. 6 chronic neuropathy: Has not been on any medication currently. 7 GI prophylaxis: Patient can benefit from being on pantoprazole 40 mg daily. 8 DVT prophylaxis: Early mobilization and knee-high ABRAHAM hose. CODE STATUS: Full code. Admit patient to observation for 1-2 nights.
[2019-01-10] MEDS ORDERED: Acetaminophen-Codeine 300-30mg TAB PO PRN (15:22)
--- NOTE | 2019-01-10 15:59 | P.CNNES ---
History of Present Illness Consult date: 01/10/19 Reason for Consult: Walker's palsy versus CVA History of Present Illness: Patient is a 43-year-old female, who states that on 01/06/2019, she developed a twitch in the left eye. The next day on Wednesday, she noticed left facial droop and dysphagia by afternoon. She also notices her taste sensation felt heightened and everything was feeling very tasty. On Wednesday the taste sensation became normal, but today she has developed some metallic taste in her mouth. She denies any changes in her hearing, hyperacusis. Patient also was having trouble speaking, but now seems to have improved. Dysphagia has resolved. Yesterday she had headache involving back of the head, but now it's somewhat bifrontal. Denies any other focal symptoms like numbness tingling, blurred vision, double vision. Patient came to the ER, underwent computed tomography scan of the head, which was normal. Chest x-ray normal. EKG showed normal sinus rhythm. Patient had normal Chem-20, last hemoglobin A1c 6.4 on 12/30/2018. Liver functions normal. PT/PTT normal, CBC normal. Her last total cholesterol is 190, LDL 119, HDL 52. TSH normal. Free T4 normal Patient has history of diabetes for 6 years, hypertension, some cholesterol problem. She does not take any antiplatelet medications. Review of Systems As above in detail. Denies any chest pain, shortness of breath. Patient had some dysphagia, but now has resolved. All other review of systems completely unremarkable. Past Medical History Past Medical History: Asthma, Diabetes Mellitus, GERD/Reflux, Hypertension Additional Past Medical History / Comment(s): NIDDM type II, RLS, seasonal asthma, bronchitis. History of Any Multi-Drug Resistant Organisms: None Reported Past Surgical History: Cholecystectomy Additional Past Surgical History / Comment(s): bladder suspension, R carpal tunnel release, EGD/colonoscopy Past Anesthesia/Blood Transfusion Reactions: Postoperative Nausea & Vomiting (PO NV) Smoking Status: Never smoker - Past Family History Father Additional Family Medical History / Comment(s): Father had 3rd degree heart block and has a pacer. Mother Family Medical History: Blood Disorder Additional Family Medical History / Comment(s): Low platelets. Medications and Allergies Home Medications Medication Instructions Recorded Confirmed Type Etodolac [Lodine] 400 mg PO BID 01/29/15 01/09/19 History Gabapentin [Neurontin] 300 mg PO BID 01/29/15 01/09/19 History Losartan [Cozaar] 25 mg PO DAILY 01/29/15 01/09/19 History Pantoprazole Sodium 40 mg PO DAILY 01/29/15 01/09/19 History Cyclobenzaprine [Flexeril] 10 mg PO HS PRN 10/04/18 01/09/19 History Pioglitazone [Actos] 15 mg PO DAILY 10/04/18 01/09/19 History glipiZIDE [Glucotrol] 10 mg PO AC-BID 10/04/18 01/09/19 History Biotin 5 mg PO DAILY 01/09/19 01/09/19 History Allergies Allergy/AdvReac Type Severity Reaction Status Date / Time metformin Allergy Unknown Verified 01/09/19 19:32 moxifloxacin HCl Allergy Rash/Hives Verified 01/09/19 19:32 [From Avelox] Physical Examination - Vital Signs Vital Signs: Vital Signs Temp Pulse Pulse Resp BP BP Pulse Ox 01/10/19 15:12 120 H 01/10/19 15:03 121 H 16 135/65 96 01/10/19 14:00 98.4 F 107 H 20 157/89 96 01/10/19 12:40 99.0 F 116 H 18 145/86 95 01/10/19 11:00 160/86 96 01/10/19 10:00 90 18 140/85 97 01/10/19 08:00 122/75 96 01/10/19 07:00 97 18 122/75 97 01/10/19 06:00 94 20 122/65 88 L 01/10/19 04:00 91 18 130/77 95 01/09/19 23:56 95 18 149/79 98 01/09/19 22:29 90 18 01/09/19 21:07 98.2 F 89 18 135/71 99 01/09/19 20:39 99 18 168/83 99 01/09/19 20:18 100 01/09/19 19:29 98.4 F 101 H 18 113/74 100 On examination patient is a middle aged female, very pleasant, in no distress. Patient is alert and awake. Speech and language functions are completely normal. On cranial nerve exam showed pupils are round and reacting to light. Visual cox are full. Extraocular muscles are intact. Patient has left facial weakness, peripheral type, moderate degree. Tongue protrudes to the midline. Facial sensations normal. Palatal elevation normal. Shoulder shrug normal. On muscle strength testing there is no pronator drift and the strength is normal in arms and legs distally and proximally reflexes are symmetric and plantars downgoing. No ataxia for [id number], tone and bulk of muscles normal. Results - Laboratory Findings CBC and BMP: 01/09/19 20:16 01/09/19 20:16 Abnormal Lab Findings: Abnormal Labs 01/09/19 01/10/19 01/10/19 20:16 07:45 08:46 Glucose 131 H POC Glucose (mg/dL) 245 H 258 H 01/10/19 01/10/19 01/10/19 10:28 11:21 13:46 Glucose POC Glucose (mg/dL) 220 H 204 H 147 H Assessment and Plan Assessment: * Left Walker's palsy * Diabetes, controlled. Plan: * Prednisone 60 mg daily for 5 days, then decrease by 10 mg daily until off. * Valtrex 1 g 3 times a day for 7 days. * Use of artificial tears every 2-3 hours * Apply Lacri-Lube at night, with the eye patch. * Watch for diet, and closely follow blood sugars while being on prednisone.
[2019-01-10 17:04] LABS: Glucose,Whole Blood 154 mg/dL (75-99)
[2019-01-10 20:30] LABS: Glucose,Whole Blood 167 mg/dL (75-99)
[2019-01-10] MEDS: ARTIFICIAL TEARS-HYPROMELLOSE DROPS 15 ML BTL LEFT EYE PRN (21:30)
[2019-01-11 06:21] LABS: Glucose,Whole Blood 98 mg/dL (75-99)
[2019-01-11] MEDS: INSULIN ASPART (NovoLOG) 100 UNIT/ML VIAL SQ SCH ×2 (06:42→11:45)
[2019-01-11] MEDS: glipiZIDE 10 MG TAB PO SCH (06:43)
[2019-01-11] MEDS: PANTOPRAZOLE 40 MG TABLET PO SCH (06:43)
[2019-01-11 08:29] VITALS: BP 117/56; PULSE 87; RESP 16; TEMP 98.2
[2019-01-11] MEDS: valACYclovir HCL 1,000 MG TABLET PO SCH (08:31)
[2019-01-11] MEDS: LOSARTAN 25 MG TAB PO SCH (08:31)
[2019-01-11] MEDS: GABAPENTIN 300 MG CAP PO SCH (08:31)
[2019-01-11] MEDS: SODIUM CHLORIDE 0.9% 1,000 ML IV SCH (08:34)
[2019-01-11] MEDS: PIOGLITAZONE 15 MG TAB PO SCH (08:34)
[2019-01-11] MEDS: ARTIFICIAL TEARS-HYPROMELLOSE DROPS 15 ML BTL LEFT EYE PRN (08:48)
[2019-01-11 11:53] LABS: Glucose,Whole Blood 195 mg/dL (75-99)
--- NOTE | 2019-01-11 13:54 | P.PN ---
Subjective Progress Note Date: 01/11/19 Patient still with left facial weakness, peripheral type. No new neurological symptoms. Objective - Vital Signs Vital signs: Vital Signs Temp 98.2 F 01/11/19 08:25 Pulse 87 01/11/19 08:25 Resp 16 01/11/19 08:25 BP 117/56 01/11/19 08:25 Pulse Ox 97 01/11/19 08:25 Intake & Output 01/10/19 01/11/19 01/11/19 18:59 06:59 18:59 Intake Total 360 240 Balance 360 240 Weight 119.7 kg Intake: Oral 360 240 Other: # Voids 1 2 - Exam Unchanged. Left facial weakness, peripheral type - Labs CBC & Chem 7: 01/09/19 20:16 01/09/19 20:16 Labs: Abnormal Lab Results - Last 24 Hours (Table) 01/10/19 01/10/19 01/11/19 Range/Units 16:42 20:27 11:37 POC Glucose (mg/dL) 154 H 167 H 195 H (75-99) mg/dL Assessment and Plan Assessment: * Left Walker's palsy * Diabetes, controlled. Plan: * Prednisone 60 mg daily for 5 days, then decrease by 10 mg daily until off. * Valtrex 1 g 3 times a day for 7 days. * Use of artificial tears every 2-3 hours * Apply Lacri-Lube at night, with the eye patch. * Watch for diet, and closely follow blood sugars while being on prednisone. * Patient neurologically stable, clear from neurology point.
[2019-01-11 15:56] LABS: Hemoglobin A1C 7.7 % (4.0-6.0)
--- NOTE | 2019-01-13 14:21 | P.DS ---
Providers Date of admission: 01/09/19 22:52 Expected date of discharge: 01/11/19 Attending physician: Lenny Morgan Consults: 01/09/19 23:41 Consult Physician Routine Consulting Provider: Jaida Ash Consult Reason/Comments: rule out cva Do you want consulting provider notified?: Yes Primary care physician: Abril Yun Hospital Course: 43-year-old female overweight with history of type 2 diabetes, hypertension, hyperlipidemia who was started on atorvastatin this past week as an outpatient because of significant hyperlipidemia she: Resume service on Wednesday complaining of weakness and droopy face on the left side she claimed side effect atorvastatin was told that time this is could be Walker's palsy but not to give it any chance to go to the emergency department, she waited until Wednesday and was seen by Dr. Yun in the office with a current finding was concern about CVA specially with the severe of her paralysis in the left facial area and slight weakness and numbness in the left arm a Chin ended up coming to the emergency department CT of the brain didn't show any abnormality patient was admitted after CAT scan of the brain on funder will be seen urology and be evaluated was started on high dose of Valtrex at the time no steroid was use. 01/11: Patient has been seen by Dr. Ash for left-sided Walker's palsy with recommendations for prednisone 60 mg daily for 5 days and decrease by 10 mg, Valtrex 1 g 3 times daily for 7 days, artificial tears, Lacri-Lube at night and eye patch monitor blood sugars closely while on prednisone. Patient will be provided with NovoLog flex pen to use while she is on prednisone and then this will be discontinued. Patient has no new symptoms. Patient will be discharged home today in stable condition. Discharge diagnoses: 1 Walker's palsy 2 severe Walker's Palsy 3 type 2 diabetes 4 hyperlipidemia 5 hypertension 6 chronic neuropathy Discharge plan: Home Impression and plan of care have been directed as dictated by the signing physician. Molly Baltazar nurse practitioner acting as scribe for signing physician. Patient Condition at Discharge: Good Plan - Discharge Summary Discharge Rx Participant: No New Discharge Prescriptions: New Insulin Aspart [NovoLOG Flexpen] 1 units SQ TID #1 ml predniSONE 0 mg PO DIRECTED #105 tab valACYclovir HCL [Valtrex] 1,000 mg PO Q8HR #21 tab Pen Needle, Diabetic [Bd Ultra-Fine Pen Needle 5mm 31G] 1 each AC-TID #100 dis.needle No Action Pantoprazole Sodium 40 mg PO DAILY Losartan [Cozaar] 25 mg PO DAILY Etodolac [Lodine] 400 mg PO BID Gabapentin [Neurontin] 300 mg PO BID Pioglitazone [Actos] 15 mg PO DAILY Cyclobenzaprine [Flexeril] 10 mg PO HS PRN PRN Reason: Pain glipiZIDE [Glucotrol] 10 mg PO AC-BID Biotin 5 mg PO DAILY Discharge Medication List Etodolac [Lodine] 400 mg PO BID 01/29/15 [History] Gabapentin [Neurontin] 300 mg PO BID 01/29/15 [History] Losartan [Cozaar] 25 mg PO DAILY 01/29/15 [History] Pantoprazole Sodium 40 mg PO DAILY 01/29/15 [History] Cyclobenzaprine [Flexeril] 10 mg PO HS PRN 10/04/18 [History] Pioglitazone [Actos] 15 mg PO DAILY 10/04/18 [History] glipiZIDE [Glucotrol] 10 mg PO AC-BID 10/04/18 [History] Biotin 5 mg PO DAILY 01/09/19 [History] Insulin Aspart [NovoLOG Flexpen] 1 units SQ TID #1 ml 01/11/19 [Rx] Pen Needle, Diabetic [Bd Ultra-Fine Pen Needle 5mm 31G] 1 each AC-TID #100 dis.needle 01/11/19 [Rx] predniSONE 0 mg PO DIRECTED #105 tab 01/11/19 [Rx] valACYclovir HCL [Valtrex] 1,000 mg PO Q8HR #21 tab 01/11/19 [Rx] Follow up Appointment(s)/Referral(s): Abril Yun MD [Primary Care Provider] - 01/17/19 4:15 pm (Wednesday) Luis Armando Crawford MD [STAFF PHYSICIAN] - 01/17/19 8:00 am (Wednesday -Opthalmologist.) Patient Instructions/Handouts: Transient Ischemic Attack (DC), Walker Palsy (DC), Basic Carbohydrate Counting (DC) Activity/Diet/Wound Care/Special Instructions: Novolog scale for home use while on Prednisone. 1. Use artificial tears every 2-3 hours. 2. Use eye patch at night. 3. Manage diet closely, prednisone with increase your blood sugar. Discharge Disposition: HOME SELF-CARE
== END 2019-01-11 14:03 | disposition home or self-care (01) | DRG 74 ==
LOC: EC 19:06 → 3SCARD 22:51 → OBSVTOIN 22:52 → 3SCARD 01-10 14:33
PROVIDERS: ADMIT Internal Medicine Geriatric Medicine; ATTEND Internal Medicine Geriatric Medicine
DX: G51.0 Bell's palsy (principal); Z68.41 Body mass index [BMI] 40.0-44.9, adult; E11.40 Type 2 diabetes mellitus with diabetic neuropathy, unspecified; E66.9 Obesity, unspecified; E78.5 Hyperlipidemia, unspecified; I10 Essential (primary) hypertension; G25.81 Restless legs syndrome; J45.909 Unspecified asthma, uncomplicated; K21.9 Gastro-esophageal reflux disease without esophagitis; Z79.84 Long term (current) use of oral hypoglycemic drugs; Z79.899 Other long term (current) drug therapy; Z90.49 Acquired absence of other specified parts of digestive tract; Z88.1 Allergy status to other antibiotic agents; Z91.048 Other nonmedicinal substance allergy status; Z88.8 Allergy status to other drugs, medicaments and biological substances; Z82.3 Family history of stroke
CPT/HCPCS: 36415; 70450; 71046; 80053; 81025; 83036; 84484; 85025; 85610; 85730; 93005; 99285

== ENCOUNTER → 2020-11-25 | Outpatient (CLI) | payer BC ==
[2020-11-25 23:10] LABS: Hemoglobin A1C 6.4 % (4.0-6.0)
[2020-11-26 01:30] LABS: African American GFR (CKD) 88.2 (60.0-200.0); Albumin 4.7 g/dL (3.80-4.90); Albumin/Globulin Ratio 1.81 (1.60-3.17); Anion Gap 9.2 mmol/L (4.00-12.00); BUN/Creat Ratio 14.44 Ratio (12.00-20.00); Calcium 9.8 mg/dL (8.7-10.3); Carbon Dioxide 24.8 mmol/L (21.6-31.8); Chol/HDL Ratio 3.43; Globulin 2.6 g/dL (1.6-3.3); Non-African American GFR(CKD) 76.1 (60.0-200.0); Potassium 4.5 mmol/L (3.5-5.5); Total Bilirubin 0.5 mg/dL (0.2-1.2); Total Protein 7.3 g/dL (6.2-8.2)
[2020-11-26 01:37] LABS: T4, Free (Free Thyroxine) 1.1 ng/dL (0.80-1.80)
== END | disposition home or self-care (01) ==
LOC: LABWHC1 13:17
PROVIDERS: ATTEND Internal Medicine
DX: Z00.00 Encounter for general adult medical examination without abnormal findings (principal); E11.9 Type 2 diabetes mellitus without complications; E66.9 Obesity, unspecified
CPT/HCPCS: 36415; 80053; 80061; 83036; 84439; 84443; 84481

== ENCOUNTER → 2021-05-05 | Outpatient (CLI) | payer BC ==
--- NOTE | 2021-05-06 02:46 | MR ---
EXAMINATION TYPE: MR ankle RT wo con DATE OF EXAM: 05/05/2021 COMPARISON: None HISTORY: Rt ankle pain, sprain of achilles tendon Multiplanar multiecho imaging of the right ankle without contrast. There is subcutaneous edema around the lower leg. Ankle mortise is anatomic. There is 5 mm area of ed ananth in the medial dome of the talus on the T2 images. The collateral ligaments are intact. I see no f racture line. There is some mild thickening of the Achilles tendon. There is some minimal fluid signa l in the anterior aspect of the tendon close to the attachment on the calcaneus. The medial and later al flexor tendons appear intact. There is narrowing of the ankle joint space. I see no fracture line. 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 Small bone bruise in the medial dome of the talus. Partial tear of the Achilles tendon close to the attachment on the calcaneus. Subcutaneous edema. No fracture.
== END | disposition home or self-care (01) ==
LOC: RADMRIMAIN 15:43
PROVIDERS: ATTEND Podiatrist Foot & Ankle Surgery
DX: S86.001A Unspecified injury of right Achilles tendon, initial encounter (principal); M19.071 Primary osteoarthritis, right ankle and foot

== ENCOUNTER → 2022-01-27 | Outpatient (CLI) | payer BC ==
--- NOTE | 2022-01-28 07:13 | US ---
EXAMINATION TYPE: US venous doppler duplex LE DATE OF EXAM: 01/27/2022 5:41 PM COMPARISON: NONE CLINICAL HISTORY: Left Leg Pain M79.605. Patient states she has a bruise and pain near her left ankle . SIDE PERFORMED: Bilateral TECHNIQUE: The lower extremity deep venous system is examined utilizing real time linear array sonog chandu with graded compression, doppler sonography and color-flow sonography. VESSELS IMAGED: Common Femoral Vein Deep Femoral Vein Greater Saphenous Vein * Femoral Vein Popliteal Vein Small Saphenous Vein * Proximal Calf Veins (* superficial vessels) Right Leg: Negative for DVT Left Leg: Negative for DVT IMPRESSION: No evidence for DVT at this time.
== END | disposition home or self-care (01) ==
LOC: RADUSWWP 17:20
PROVIDERS: ATTEND Internal Medicine
DX: M79.605 Pain in left leg (principal)
CPT/HCPCS: 93970

== ENCOUNTER → 2022-01-29 | Outpatient (CLI) | payer BC ==
--- NOTE | 2022-01-29 13:30 | XR ---
EXAMINATION TYPE: XR chest 2V DATE OF EXAM: 01/29/2022 COMPARISON: 01/09/2019 TECHNIQUE: PA and lateral views submitted. HISTORY: Cough FINDINGS: The lungs are clear and there is no pneumothorax, pleural effusion, or focal pneumonia. Heart size normal. No overt failure. Hypertrophic and degenerative change of spine. IMPRESSION: 1. No acute process.
== END | disposition home or self-care (01) ==
LOC: RADXRMAIN 13:10
PROVIDERS: ATTEND Internal Medicine
DX: R05.9 Cough, unspecified (principal)
CPT/HCPCS: 71046

== ENCOUNTER → 2022-08-10 | Outpatient (CLI) | payer BC ==
[2022-08-10 09:11] LABS: African American GFR (CKD) >90 (>60 ml/min/1.73 sqM); Blood Urea Nitrogen 16 mg/dL (7-17); Non-African American GFR(CKD) >90 (>60 ml/min/1.73 sqM)
--- NOTE | 2022-08-10 10:44 | CT ---
EXAMINATION TYPE: CT abdomen pelvis w con DATE OF EXAM: 08/10/2022 COMPARISON: INDICATION: abd pain DLP: 3509.4 mGycm, Automated exposure control for dose reduction was used. CONTRAST: 70 mL of Isovue 300. Study performed with Oral Contrast TECHNIQUE: Axial images were obtained from above the diaphragm to the pubic rami in the axial plane a t 5 mm thick sections. Reconstructed images are reviewed on the computer in the coronal plane. FINDINGS: Limited CT sections are obtained the lung bases. The lung bases are clear. CT ABDOMEN: Liver: Normal Spleen: Normal Pancreas: Normal Adrenal glands: The adrenal glands are normal. Gallbladder: Surgically absent Kidneys: No masses are evident. No hydronephrosis is present. No cysts are present. Delayed images were obtained through the kidneys, which remain unremarkable. Aorta: Normal Inferior vena cava: Normal. CT PELVIS: Loops of bowel within the abdomen and pelvis are normal. There are loops of bowel which are incom pletely distended or lack oral contrast limiting their evaluation. Appendix: Normal as visualized. Urinary bladder: Normal. Genitourinary structures: There is appears normal. Adnexa are normal. Osseous structures: No suspicious lytic or sclerotic lesions. IMPRESSIONS: 1. No acute abnormality to account for right-sided abdomen pain
== END | disposition home or self-care (01) ==
LOC: RADCTMAIN 08:29
PROVIDERS: ATTEND Internal Medicine
DX: K44.0 Diaphragmatic hernia with obstruction, without gangrene (principal)
CPT/HCPCS: 82565; 84520; 74177; 36415; Q9967

== ENCOUNTER → 2023-11-29 | Outpatient (CLI) | payer BC ==
--- NOTE | 2023-11-29 19:31 | US ---
EXAMINATION TYPE: US liver DATE OF EXAM: 11/29/2023 COMPARISON: NONE CLINICAL INDICATION: Female, 48 years old with history of R74.01 ELEVATION OF LEVELS OF LIVER TRANSAM INASE L; LFT's TECHNIQUE: Multiple sonographic images of the right upper quadrant are obtained. FINDINGS: EXAM MEASUREMENTS: Liver Length: 14.5 cm Gallbladder Wall: Surgically absent CBD: obscured by bowel gas Right Kidney: cm CASE AIDE NOTES: Pancreas: Tail obscured by overlying bowel gas Liver: increased echogenicity and attenuattion Gallbladder: Surgically absent Evidence for sonographic Ford's sign: No CBD: Obscured by overlying bowel gas Right Kidney: No hydronephrosis or masses seen exam limited by bowel gas and body habitus IMPRESSION: Hepatic steatosis no suspicious observations.
== END | disposition home or self-care (01) ==
LOC: RADUSWWP 08:03
PROVIDERS: ATTEND Internal Medicine
DX: K76.0 Fatty (change of) liver, not elsewhere classified (principal); R74.01 Elevation of levels of liver transaminase levels; Z90.49 Acquired absence of other specified parts of digestive tract
CPT/HCPCS: 76705